=== PATIENT | female | born 1965 | race Caucasian/White ===

== ENCOUNTER 2021-06-13 12:11 | Inpatient (IN) ==
[2021-06-13] MEDS ORDERED: REMDESIVIR 100 MG in NS 100 ML IV + SPIKE MINIBAG* 120 ML IV ONE (13:44)
[2021-06-13] MEDS ORDERED: BENADRYL INJ 50 MG VIAL ONE (14:09)
[2021-06-13] MEDS ORDERED: PHARMACY CONSULT - IVERMECTIN XX SCH (15:27)
[2021-06-13] MEDS ORDERED: PHARMACY CONSULT - LOVENOX XX SCH (15:27)
[2021-06-13] MEDS ORDERED: PERIACTIN TAB 4 MG PO PRN (15:27)
[2021-06-13] MEDS ORDERED: SOLU-Medrol 125 MG VIAL IVP SCH (15:27)
[2021-06-13] MEDS: PULMICORT NEB TX 0.5 MG NEB SCH ×2 (16:08→21:28)
[2021-06-13] MEDS: BROVANA IN SCH ×2 (16:08→21:28)
[2021-06-13 16:21] LABS: BASOPHILS % (AUTO) 0.1 % (0.2-1.0); HEMOGLOBIN 14.8 g/dL (12.0-16.0); LYMPHOCYTES # (AUTO) 0.9 X10^3/uL (1.3-2.9); LYMPHOCYTES % (AUTO) 20.4 % (21.0-51.0); MEAN CORPUSCULAR HEMOGLOBIN 30.6 pg (27.0-34.0); MEAN CORPUSCULAR HGB CONC 33.6 g/dL (33.0-35.0); MEAN CORPUSCULAR VOLUME 91.1 fL (80.0-100.0); MEAN PLATELET VOLUME 9.9 fL (7.4-11.0); MONOCYTES # (AUTO) 0.2 x10^3/uL (0.3-0.8); MONOCYTES % (AUTO) 3.7 % (0.0-13.0); NEUTROPHILS # (AUTO) 3.3 x10^3/uL (2.2-4.8); NEUTROPHILS % (AUTO) 75.8 % (42.0-75.0); PLATELET COUNT 152 X10^3/uL (150.0-450.0); RED BLOOD COUNT 4.83 X10^6/uL (3.5-5.4); WHITE BLOOD COUNT 4.4 X10^3/uL (3.6-10.0)
[2021-06-13 16:24] LABS: BLOOD UREA NITROGEN 26 mg/dL (7-18); CALCIUM 8.7 mg/dL (8.5-10.1); CARBON DIOXIDE 26.6 mmol/L (21-32); CHLORIDE 101 mmol/L (98-107); COR NA(FOR HYPERGLY) 144 mmol/L (136-145); CREATININE 0.88 mg/dL (0.55-1.02); SODIUM 139 mmol/L (136-145); eGFR NON BLACK RACES > 60 (>60)
[2021-06-13 16:25] LABS: BILIRUBIN,URINE NEGATIVE (NEGATIVE); BLOOD/HEMOGLOBIN,URINE NEGATIVE (NEGATIVE); GLUCOSE, URINE 4+ (NEGATIVE); KETONES,URINE NEGATIVE (NEGATIVE); LEUKOCYTE ESTERASE ,URINE NEGATIVE (NEGATIVE); NITRITES,URINE NEGATIVE (NEGATIVE); PROTEIN,URINE NEGATIVE (NEGATIVE); UROBILINOGEN,URINE NORMAL (NORMAL)
[2021-06-13 16:39] LABS: TROPONIN I < 0.02 ng/mL (0-1.5)
--- NOTE | 2021-06-13 16:40 | RAD ---
HISTORYCOVID COUGH, SOB, CONGESTIONSTUDYCHEST, 1 VIEWCOMPARISONAugust 2020FINDINGSThe trachea is midline. The cardiac silhouette is unremarkable. The lungs demonstrate persistent bilateral airspace opacities unchanged compared to prior given the differences in technique. The bony thorax is unremarkable.IMPRESSIONStable bilateral airspace disease most compatible pneumonia. These findings are unchanged.Electronically signed by: WESTON MARTIN (Jun 13, 2021 16:39:41)
[2021-06-13 16:41] LABS: APPEARANCE,URINE HAZY (CLEAR); COLOR,URINE STRAW (YELLOW)
[2021-06-13 16:56] VITALS: BMI 31.8
[2021-06-13] MEDS ORDERED: VIBRAMYCIN PO ONE (17:46)
[2021-06-13] MEDS ORDERED: THIAMINE HCL INJ ONE (17:46)
[2021-06-13] MEDS ORDERED: IVERMECTIN ONE ×2 (17:46→18:10)
[2021-06-13] MEDS ORDERED: ZINC SULFATE ONE (17:47)
[2021-06-13] MEDS ORDERED: VITAMIN D3 125 mcg (5,000 UNITS) ONE (17:47)
[2021-06-13] MEDS ORDERED: LIPITOR TAB 80 MG ONE (17:47)
[2021-06-13] MEDS ORDERED: PROTONIX INJ 40 MG VIAL ONE (17:47)
[2021-06-13] MEDS ORDERED: PEPCID TAB 40 MG ONE (17:47)
[2021-06-13] MEDS ORDERED: ASCORBIC ACID INJ MULTI-DOSE VIAL IV ONE (17:49)
[2021-06-13] MEDS ORDERED: NS 100 ML IV 100 ML ONE (17:49)
[2021-06-13] MEDS: CYTOTEC PO SCH ×2 (17:55→23:32)
[2021-06-13] MEDS ORDERED: NS 1000 ML 1,000 ML ONE (17:57)
[2021-06-13] MEDS: NS 1000 ML 1,000 ML IV SCH (18:04)
[2021-06-13] MEDS: ASCORBIC ACID INJ MULTI-DOSE VIAL 1,500 MG in NS 100 ML IV 100 ML IV SCH ×2 (18:04→23:30)
[2021-06-13] MEDS: ZINC SULFATE PO SCH ×2 (18:04→23:33)
[2021-06-13] MEDS: VITAMIN A PO SCH (18:05)
[2021-06-13] MEDS: LIPITOR TAB 80 MG PO SCH (18:06)
[2021-06-13] MEDS: THIAMINE HCL INJ IVP SCH ×2 (18:07→23:32)
[2021-06-13] MEDS: PROTONIX INJ 40 MG VIAL IVP SCH ×2 (18:07→23:31)
[2021-06-13] MEDS: VIBRAMYCIN PO SCH ×2 (18:07→23:32)
[2021-06-13] MEDS: PEPCID TAB 40 MG PO SCH ×2 (18:07→23:31)
[2021-06-13] MEDS: VITAMIN D (1.25MG) PO SCH (18:08)
[2021-06-13] MEDS: IVERMECTIN PO SCH (18:08)
[2021-06-13] MEDS: SOLU-Medrol 125 MG VIAL ONE ×2 (18:15→23:29)
[2021-06-13] MEDS ORDERED: SOLU-Medrol 40 MG VIAL ONE (23:41)
[2021-06-13] MEDS ORDERED: LOVENOX INJ 80 MG SYR SC ONE (23:41)
[2021-06-13] MEDS: LOVENOX INJ 80 MG SYR SC SCH (23:50)
[2021-06-14] MEDS: SOLU-Medrol 40 MG VIAL IVP SCH ×4 (00:04→21:48)
[2021-06-14] MEDS: MELATONIN PO SCH ×2 (00:04→21:46)
[2021-06-14] MEDS ORDERED: ASCORBIC ACID INJ MULTI-DOSE VIAL IV ONE ×3 (03:11→15:18)
[2021-06-14] MEDS: ASCORBIC ACID INJ MULTI-DOSE VIAL 1,500 MG in NS 100 ML IV 100 ML IV SCH ×4 (03:12→21:47)
[2021-06-14] MEDS ORDERED: NS 100 ML IV 100 ML ONE ×3 (03:12→15:18)
[2021-06-14] MEDS ORDERED: SOLU-Medrol 40 MG VIAL ONE ×2 (05:30→14:06)
[2021-06-14] MEDS: CYTOTEC PO SCH ×3 (05:54→21:47)
[2021-06-14] MEDS ORDERED: VIBRAMYCIN PO ONE (08:09)
[2021-06-14] MEDS ORDERED: ZINC SULFATE ONE (08:10)
[2021-06-14] MEDS ORDERED: IVERMECTIN ONE (08:10)
[2021-06-14] MEDS ORDERED: PEPCID TAB 40 MG ONE (08:10)
[2021-06-14] MEDS ORDERED: VITAMIN D3 125 mcg (5,000 UNITS) ONE (08:10)
[2021-06-14] MEDS ORDERED: LIPITOR TAB 80 MG ONE (08:10)
[2021-06-14] MEDS ORDERED: THIAMINE HCL INJ ONE (08:10)
[2021-06-14] MEDS ORDERED: PROTONIX INJ 40 MG VIAL ONE (08:11)
[2021-06-14] MEDS ORDERED: REMDESIVIR IV ONE (08:11)
[2021-06-14] MEDS ORDERED: NS 250 ML IV 250 ML IV ONE (08:11)
[2021-06-14] MEDS: VIBRAMYCIN PO SCH ×2 (08:40→21:48)
[2021-06-14] MEDS: LIPITOR TAB 80 MG PO SCH (08:41)
[2021-06-14] MEDS: IVERMECTIN PO SCH (08:41)
[2021-06-14] MEDS: PEPCID TAB 40 MG PO SCH ×2 (08:41→21:48)
[2021-06-14] MEDS: THIAMINE HCL INJ IVP SCH ×2 (08:42→21:48)
[2021-06-14] MEDS: ZINC SULFATE PO SCH ×2 (08:43→21:46)
[2021-06-14] MEDS: PROTONIX INJ 40 MG VIAL IVP SCH ×2 (08:44→21:47)
[2021-06-14] MEDS: VITAMIN D (1.25MG) PO SCH (09:00)
[2021-06-14] MEDS: VITAMIN A PO SCH (09:00)
[2021-06-14] MEDS: PULMICORT NEB TX 0.5 MG NEB SCH ×2 (09:20→21:31)
[2021-06-14] MEDS: BROVANA IN SCH ×2 (09:20→21:31)
[2021-06-14] MEDS: LOVENOX INJ 80 MG SYR SC SCH ×2 (10:00→21:47)
[2021-06-14] MEDS: REMDESIVIR 100 MG in NS 250 ML IV 250 ML IV SCH (10:00)
[2021-06-14] MEDS: NS 1000 ML 1,000 ML IV SCH (21:48)
[2021-06-14] MEDS: HumuLIN R SC PRN (22:17)
[2021-06-14 23:18] LABS: ALANINE AMINOTRANSFERASE 52 Units/L (12-78); ALBUMIN 3.1 g/dL (3.4-5.0); ALKALINE PHOSPHATASE 81 Units/L (46-116); ASPARTATE AMINO TRANSFERASE 56 Units/L (15-37); COR CA(FOR HYPOALB) 9.4 mg/dL (8.5-10.1); TOTAL PROTEIN 5.9 g/dL (6.4-8.2)
[2021-06-15] MEDS: ASCORBIC ACID INJ MULTI-DOSE VIAL 1,500 MG in NS 100 ML IV 100 ML IV SCH ×4 (02:36→21:39)
[2021-06-15] MEDS ORDERED: MICRO K EXTEN CAP 10 MEQ PO PRN (03:36)
[2021-06-15] MEDS: CYTOTEC PO SCH ×3 (05:20→21:43)
[2021-06-15] MEDS: SOLU-Medrol 40 MG VIAL IVP SCH ×3 (05:20→21:43)
[2021-06-15 06:17] LABS: ALANINE AMINOTRANSFERASE 40 Units/L (12-78); ALBUMIN 2.6 g/dL (3.4-5.0); ALKALINE PHOSPHATASE 78 Units/L (46-116); ASPARTATE AMINO TRANSFERASE 35 Units/L (15-37); BLOOD UREA NITROGEN 31 mg/dL (7-18); CALCIUM 8.6 mg/dL (8.5-10.1); CHLORIDE 105 mmol/L (98-107); COR CA(FOR HYPOALB) 9.7 mg/dL (8.5-10.1); COR NA(FOR HYPERGLY) 145 mmol/L (136-145); CREATININE 0.93 mg/dL (0.55-1.02); SODIUM 141 mmol/L (136-145); TOTAL PROTEIN 5.3 g/dL (6.4-8.2); eGFR NON BLACK RACES > 60 (>60)
[2021-06-15 06:18] LABS: BASOPHILS % (AUTO) 0.1 % (0.2-1.0); HEMATOCRIT 38.8 % (36.0-47.0); HEMOGLOBIN 13.2 g/dL (12.0-16.0); LYMPHOCYTES # (AUTO) 0.9 X10^3/uL (1.3-2.9); LYMPHOCYTES % (AUTO) 11.8 % (21.0-51.0); MEAN CORPUSCULAR HEMOGLOBIN 30.3 pg (27.0-34.0); MEAN CORPUSCULAR HGB CONC 34.1 g/dL (33.0-35.0); MEAN CORPUSCULAR VOLUME 88.7 fL (80.0-100.0); MEAN PLATELET VOLUME 9.9 fL (7.4-11.0); MONOCYTES # (AUTO) 0.4 x10^3/uL (0.3-0.8); MONOCYTES % (AUTO) 5.6 % (0.0-13.0); NEUTROPHILS # (AUTO) 6.4 x10^3/uL (2.2-4.8); NEUTROPHILS % (AUTO) 82.5 % (42.0-75.0); PLATELET COUNT 214 X10^3/uL (150.0-450.0); RED BLOOD COUNT 4.37 X10^6/uL (3.5-5.4); RED CELL DISTRIBUTION WIDTH 13.8 % (11.6-16.5); WHITE BLOOD COUNT 7.8 X10^3/uL (3.6-10.0)
[2021-06-15] MEDS: HumuLIN R SC PRN ×4 (06:25→21:45)
[2021-06-15] MEDS: K-DUR TAB 20 MEQ PO PRN ×2 (06:25→06:29)
[2021-06-15] MEDS: BROVANA IN SCH ×2 (09:08→20:23)
[2021-06-15] MEDS: PULMICORT NEB TX 0.5 MG NEB SCH ×2 (09:08→20:23)
[2021-06-15] MEDS: PATIENT'S HOME MEDICATION (Empagliflozin [Jardiance] 25 mg Tablet) PO SCH (09:15)
[2021-06-15] MEDS ORDERED: GLUCOPHAGE ONE ×2 (09:26→20:49)
[2021-06-15] MEDS: ACTOS PO SCH (10:07)
[2021-06-15] MEDS: IVERMECTIN PO SCH (10:08)
[2021-06-15] MEDS: LIPITOR TAB 80 MG PO SCH (10:08)
[2021-06-15] MEDS: ZINC SULFATE PO SCH ×2 (10:08→21:43)
[2021-06-15] MEDS: LOVENOX INJ 80 MG SYR SC SCH ×2 (10:09→21:40)
[2021-06-15] MEDS: PROTONIX INJ 40 MG VIAL IVP SCH ×2 (10:09→21:42)
[2021-06-15] MEDS: GLUCOPHAGE PO SCH ×2 (10:09→21:40)
[2021-06-15] MEDS: REMDESIVIR 100 MG in NS 250 ML IV 250 ML IV SCH (10:10)
[2021-06-15] MEDS: VITAMIN A PO SCH (10:10)
[2021-06-15] MEDS: THIAMINE HCL INJ IVP SCH ×2 (10:10→21:42)
[2021-06-15] MEDS: PEPCID TAB 40 MG PO SCH ×2 (10:10→21:42)
[2021-06-15] MEDS: VIBRAMYCIN PO SCH ×2 (10:10→21:43)
[2021-06-15] MEDS: VITAMIN D3 125 mcg (5,000 UNITS) PO SCH (10:11)
[2021-06-15] MEDS: NS 1000 ML 1,000 ML IV SCH (19:58)
[2021-06-15] MEDS: MELATONIN PO SCH (21:40)
[2021-06-15] MEDS: REQUIP PO SCH (21:42)
[2021-06-16] MEDS: ASCORBIC ACID INJ MULTI-DOSE VIAL 1,500 MG in NS 100 ML IV 100 ML IV SCH ×4 (03:38→21:58)
[2021-06-16 06:09] LABS: ALANINE AMINOTRANSFERASE 44 Units/L (12-78); ALBUMIN 2.4 g/dL (3.4-5.0); ALKALINE PHOSPHATASE 89 Units/L (46-116); ASPARTATE AMINO TRANSFERASE 40 Units/L (15-37); BLOOD UREA NITROGEN 24 mg/dL (7-18); CALCIUM 8.5 mg/dL (8.5-10.1); CARBON DIOXIDE 24.1 mmol/L (21-32); CHLORIDE 110 mmol/L (98-107); COR CA(FOR HYPOALB) 9.8 mg/dL (8.5-10.1); COR NA(FOR HYPERGLY) 150 mmol/L (136-145); CREATININE 0.79 mg/dL (0.55-1.02); SODIUM 146 mmol/L (136-145); eGFR NON BLACK RACES > 60 (>60)
[2021-06-16 06:10] LABS: BASOPHILS # (AUTO) 0.1 X10^3/uL (0.0-0.1); BASOPHILS % (AUTO) 0.8 % (0.2-1.0); HEMATOCRIT 39.8 % (36.0-47.0); HEMOGLOBIN 13.4 g/dL (12.0-16.0); LYMPHOCYTES # (AUTO) 0.7 X10^3/uL (1.3-2.9); LYMPHOCYTES % (AUTO) 7.9 % (21.0-51.0); MEAN CORPUSCULAR HEMOGLOBIN 30.7 pg (27.0-34.0); MEAN CORPUSCULAR HGB CONC 33.7 g/dL (33.0-35.0); MEAN CORPUSCULAR VOLUME 91.1 fL (80.0-100.0); MEAN PLATELET VOLUME 10.4 fL (7.4-11.0); MONOCYTES # (AUTO) 0.4 x10^3/uL (0.3-0.8); MONOCYTES % (AUTO) 4.3 % (0.0-13.0); NEUTROPHILS # (AUTO) 7.2 x10^3/uL (2.2-4.8); PLATELET COUNT 218 X10^3/uL (150.0-450.0); RED BLOOD COUNT 4.37 X10^6/uL (3.5-5.4); WHITE BLOOD COUNT 8.3 X10^3/uL (3.6-10.0)
[2021-06-16] MEDS: CYTOTEC PO SCH ×3 (06:23→22:04)
[2021-06-16] MEDS: SOLU-Medrol 40 MG VIAL IVP SCH ×3 (06:23→22:05)
[2021-06-16] MEDS: K-DUR TAB 20 MEQ PO PRN (06:29)
[2021-06-16] MEDS: HumuLIN R SC PRN ×4 (06:32→21:00)
[2021-06-16] MEDS: BROVANA IN SCH ×2 (09:00→20:30)
[2021-06-16] MEDS: PULMICORT NEB TX 0.5 MG NEB SCH ×2 (09:00→20:30)
[2021-06-16] MEDS ORDERED: GLUCOPHAGE ONE ×2 (10:07→21:55)
[2021-06-16] MEDS: PATIENT'S HOME MEDICATION (Empagliflozin [Jardiance] 25 mg Tablet) PO SCH (10:17)
[2021-06-16] MEDS: ACTOS PO SCH (10:17)
[2021-06-16] MEDS: GLUCOPHAGE PO SCH ×2 (10:17→21:59)
[2021-06-16] MEDS: IVERMECTIN PO SCH (10:18)
[2021-06-16] MEDS: LIPITOR TAB 80 MG PO SCH (10:18)
[2021-06-16] MEDS: PEPCID TAB 40 MG PO SCH ×2 (10:18→22:01)
[2021-06-16] MEDS: PROTONIX INJ 40 MG VIAL IVP SCH ×2 (10:19→22:01)
[2021-06-16] MEDS: THIAMINE HCL INJ IVP SCH ×2 (10:19→22:03)
[2021-06-16] MEDS: VIBRAMYCIN PO SCH ×2 (10:19→22:03)
[2021-06-16] MEDS: ZINC SULFATE PO SCH ×2 (10:20→22:04)
[2021-06-16] MEDS: LOVENOX INJ 80 MG SYR SC SCH ×2 (10:20→22:00)
[2021-06-16] MEDS: VITAMIN A PO SCH (10:23)
[2021-06-16] MEDS: VITAMIN D3 125 mcg (5,000 UNITS) PO SCH (10:23)
[2021-06-16] MEDS: TESSALON PERLES PO PRN (10:41)
[2021-06-16] MEDS: REMDESIVIR 100 MG in NS 250 ML IV 250 ML IV SCH (12:20)
[2021-06-16] MEDS: NS 1000 ML 1,000 ML IV SCH (16:47)
[2021-06-16] MEDS: MELATONIN PO SCH (21:00)
[2021-06-16] MEDS: REQUIP PO SCH (22:02)
[2021-06-17] MEDS: ASCORBIC ACID INJ MULTI-DOSE VIAL 1,500 MG in NS 100 ML IV 100 ML IV SCH ×2 (02:28→08:56)
[2021-06-17 06:13] LABS: PLATELET COUNT 211 X10^3/uL (150.0-450.0); WHITE BLOOD COUNT 8.7 X10^3/uL (3.6-10.0)
[2021-06-17 06:21] LABS: BASOPHILS % (AUTO) 0.1 % (0.2-1.0); HEMATOCRIT 39.6 % (36.0-47.0); HEMOGLOBIN 13.4 g/dL (12.0-16.0); LYMPHOCYTES # (AUTO) 0.7 X10^3/uL (1.3-2.9); LYMPHOCYTES % (AUTO) 8.4 % (21.0-51.0); MEAN CORPUSCULAR HEMOGLOBIN 30.6 pg (27.0-34.0); MEAN CORPUSCULAR HGB CONC 33.8 g/dL (33.0-35.0); MEAN CORPUSCULAR VOLUME 90.6 fL (80.0-100.0); MEAN PLATELET VOLUME 10.2 fL (7.4-11.0); MONOCYTES # (AUTO) 0.3 x10^3/uL (0.3-0.8); MONOCYTES % (AUTO) 3.5 % (0.0-13.0); NEUTROPHILS # (AUTO) 7.7 x10^3/uL (2.2-4.8); RED BLOOD COUNT 4.38 X10^6/uL (3.5-5.4); RED CELL DISTRIBUTION WIDTH 13.8 % (11.6-16.5)
[2021-06-17 06:29] LABS: ALANINE AMINOTRANSFERASE 47 Units/L (12-78); ALBUMIN 2.4 g/dL (3.4-5.0); ALKALINE PHOSPHATASE 95 Units/L (46-116); ASPARTATE AMINO TRANSFERASE 46 Units/L (15-37); BLOOD UREA NITROGEN 26 mg/dL (7-18); CALCIUM 8.2 mg/dL (8.5-10.1); CARBON DIOXIDE 24.3 mmol/L (21-32); CHLORIDE 111 mmol/L (98-107); COR CA(FOR HYPOALB) 9.5 mg/dL (8.5-10.1); COR NA(FOR HYPERGLY) 149 mmol/L (136-145); CREATININE 0.72 mg/dL (0.55-1.02); SODIUM 146 mmol/L (136-145); TOTAL PROTEIN 4.9 g/dL (6.4-8.2); eGFR NON BLACK RACES > 60 (>60)
[2021-06-17] MEDS: SOLU-Medrol 40 MG VIAL IVP SCH (06:54)
[2021-06-17] MEDS: CYTOTEC PO SCH (06:54)
[2021-06-17] MEDS: HumuLIN R SC PRN (06:55)
[2021-06-17] MEDS ORDERED: GLUCOPHAGE ONE (08:24)
[2021-06-17] MEDS: ACTOS PO SCH (08:56)
[2021-06-17] MEDS: GLUCOPHAGE PO SCH (08:57)
[2021-06-17] MEDS: LIPITOR TAB 80 MG PO SCH (08:57)
[2021-06-17] MEDS: PEPCID TAB 40 MG PO SCH (08:57)
[2021-06-17] MEDS: PROTONIX INJ 40 MG VIAL IVP SCH (08:57)
[2021-06-17] MEDS: IVERMECTIN PO SCH (08:57)
[2021-06-17] MEDS: LOVENOX INJ 80 MG SYR SC SCH (08:57)
[2021-06-17] MEDS: THIAMINE HCL INJ IVP SCH (08:58)
[2021-06-17] MEDS: VITAMIN A PO SCH (08:58)
[2021-06-17] MEDS: VIBRAMYCIN PO SCH (08:58)
[2021-06-17] MEDS: REMDESIVIR 100 MG in NS 250 ML IV 250 ML IV SCH (08:58)
[2021-06-17] MEDS: ZINC SULFATE PO SCH (08:58)
[2021-06-17] MEDS: VITAMIN D3 125 mcg (5,000 UNITS) PO SCH (08:58)
[2021-06-17] MEDS: PATIENT'S HOME MEDICATION (Empagliflozin [Jardiance] 25 mg Tablet) PO SCH (09:09)
[2021-06-17] MEDS: TESSALON PERLES PO PRN (09:09)
[2021-06-17] MEDS: PULMICORT NEB TX 0.5 MG NEB SCH (09:47)
[2021-06-17] MEDS: BROVANA IN SCH (09:47)
[2021-06-17 11:24] VITALS: BP 153/67
== END 2021-06-17 11:40 | disposition home or self-care (01) | DRG 179 ==
LOC: OUTPT REF 12:11 → OBS 13:39 → ICU 06-14 19:20
PROVIDERS: ADMIT Obstetrics & Gynecology Obstetrics; ATTEND Obstetrics & Gynecology Obstetrics
DX: E11.65 Type 2 diabetes mellitus with hyperglycemia; R09.02 Hypoxemia; U07.1 COVID-19; R26.89 Other abnormalities of gait and mobility; R06.02 Shortness of breath